=== PATIENT | male | born 1980 | race Caucasian/White ===

== ENCOUNTER 2018-11-02 23:55 | Emergency (ER) | payer MEDICAID ==
[~2018-11-02] VITALS: Ht 180.3 cm; Wt 7.3 kg
[~2018-11-02 23:55] MED LIST: DOXY-8 PO; NO HOME MEDS; POTA20TA19 PO
[2018-11-03 00:02] VITALS: BP 110/66
[2018-11-03] MEDS ORDERED: LIDOcaine 1% 30ml preserv. free vial IJ ONE (00:15)
[2018-11-03] MEDS ORDERED: CEPH500C5 PO (00:33)
[2018-11-03] MEDS ORDERED: HYDR-3965 PO (00:33)
[2018-11-03] MEDS ORDERED: cephalexin 250mg capsule PO ONE (00:35)
== END 2018-11-03 02:44 | disposition home or self-care (01) ==
LOC: ER 23:56
DX: S62.353A Nondisplaced fracture of shaft of third metacarpal bone, left hand, initial encounter for closed fracture (principal); S62.355A Nondisplaced fracture of shaft of fourth metacarpal bone, left hand, initial encounter for closed fracture; L02.413 Cutaneous abscess of right upper limb; F12.90 Cannabis use, unspecified, uncomplicated; F15.90 Other stimulant use, unspecified, uncomplicated; F17.210 Nicotine dependence, cigarettes, uncomplicated; Z88.2 Allergy status to sulfonamides; W50.0XXA Accidental hit or strike by another person, initial encounter; Y93.89 Activity, other specified; Y92.89 Other specified places as the place of occurrence of the external cause; Y99.9 Unspecified external cause status
CPT/HCPCS: 10061; 29125; 73130; 99284; J3490; 10060; 99283

== ENCOUNTER 2018-11-23 09:24 | Emergency (ER) | payer MEDICAID, OTHER ==
[~2018-11-23] VITALS: Ht 180.3 cm; Wt 71.7 kg
[~2018-11-23 09:24] MED LIST changes: +CEPH500C5 PO; +HYDR-3965 PO
--- NOTE | 2018-11-23 10:19 | NUR ---
Assumed care of pt. electrical electronics technician at bedside for splinting as ordered. Addendum: 11/23/18 at 1019 by ANN [employer] at bedside; pt cuffed.
[2018-11-23 10:50] VITALS: BP 114/62
== END 2018-11-23 10:53 ==
LOC: ER 09:25
DX: S92.352A Displaced fracture of fifth metatarsal bone, left foot, initial encounter for closed fracture (principal); S92.512A Displaced fracture of proximal phalanx of left lesser toe(s), initial encounter for closed fracture; S62.102A Fracture of unspecified carpal bone, left wrist, initial encounter for closed fracture; F12.90 Cannabis use, unspecified, uncomplicated; F15.90 Other stimulant use, unspecified, uncomplicated; F17.210 Nicotine dependence, cigarettes, uncomplicated; Z88.2 Allergy status to sulfonamides; Z79.2 Long term (current) use of antibiotics; Z79.899 Other long term (current) drug therapy; X58.XXXA Exposure to other specified factors, initial encounter; Y93.89 Activity, other specified; Y92.89 Other specified places as the place of occurrence of the external cause; Y99.8 Other external cause status
CPT/HCPCS: 29125; 73630; 99283

== ENCOUNTER 2018-12-09 08:43 | Outpatient (CLI) | payer OTHER ==
[2018-12-09 08:31] VITALS: BP 105/66
[~2018-12-09 08:43] MED LIST changes: -HYDR-3965 PO
== END 2018-12-09 09:12 ==
LOC: ORTHO 08:43
PROVIDERS: ATTEND Nurse Practitioner Family
DX: S92.352A Displaced fracture of fifth metatarsal bone, left foot, initial encounter for closed fracture (principal); S92.512A Displaced fracture of proximal phalanx of left lesser toe(s), initial encounter for closed fracture; S62.395A Other fracture of fourth metacarpal bone, left hand, initial encounter for closed fracture; S62.355A Nondisplaced fracture of shaft of fourth metacarpal bone, left hand, initial encounter for closed fracture; S92.355A Nondisplaced fracture of fifth metatarsal bone, left foot, initial encounter for closed fracture; S92.515A Nondisplaced fracture of proximal phalanx of left lesser toe(s), initial encounter for closed fracture
CPT/HCPCS: 73130; 73630; 99213

== ENCOUNTER 2019-01-13 09:08 | Outpatient (CLI) | payer OTHER ==
[2019-01-13 09:05] VITALS: BP 120/76
== END 2019-01-13 09:46 ==
LOC: ORTHO 09:08
PROVIDERS: ATTEND Nurse Practitioner Family
DX: S92.512D Displaced fracture of proximal phalanx of left lesser toe(s), subsequent encounter for fracture with routine healing (principal); S62.395D Other fracture of fourth metacarpal bone, left hand, subsequent encounter for fracture with routine healing; S62.393D Other fracture of third metacarpal bone, left hand, subsequent encounter for fracture with routine healing; F12.90 Cannabis use, unspecified, uncomplicated; F15.90 Other stimulant use, unspecified, uncomplicated; F14.90 Cocaine use, unspecified, uncomplicated; F11.90 Opioid use, unspecified, uncomplicated; F17.210 Nicotine dependence, cigarettes, uncomplicated; Z56.0 Unemployment, unspecified; Z72.89 Other problems related to lifestyle; Z88.2 Allergy status to sulfonamides; X58.XXXD Exposure to other specified factors, subsequent encounter
CPT/HCPCS: 73130; 73630; 99213

== ENCOUNTER 2019-02-03 09:22 | Outpatient (CLI) | payer OTHER ==
[2019-02-03 09:18] VITALS: BP 130/74
== END 2019-02-03 10:07 | disposition home or self-care (01) ==
LOC: ORTHO 09:22
PROVIDERS: ATTEND Nurse Practitioner Family
DX: S62.355D Nondisplaced fracture of shaft of fourth metacarpal bone, left hand, subsequent encounter for fracture with routine healing (principal); S92.355D Nondisplaced fracture of fifth metatarsal bone, left foot, subsequent encounter for fracture with routine healing; S92.515D Nondisplaced fracture of proximal phalanx of left lesser toe(s), subsequent encounter for fracture with routine healing; F12.90 Cannabis use, unspecified, uncomplicated; F15.90 Other stimulant use, unspecified, uncomplicated; F14.90 Cocaine use, unspecified, uncomplicated; F11.90 Opioid use, unspecified, uncomplicated; F17.210 Nicotine dependence, cigarettes, uncomplicated; Z56.0 Unemployment, unspecified; Z72.89 Other problems related to lifestyle; Z88.2 Allergy status to sulfonamides; X58.XXXD Exposure to other specified factors, subsequent encounter
CPT/HCPCS: 73130; 73630; 99213

== ENCOUNTER 2019-03-05 08:42 | Outpatient (CLI) | payer OTHER ==
[2019-03-05 08:45] VITALS: BP 135/73
== END 2019-03-05 09:15 | disposition home or self-care (01) ==
LOC: ORTHO 08:42
PROVIDERS: ATTEND Orthopaedic Surgery
DX: S62.393D Other fracture of third metacarpal bone, left hand, subsequent encounter for fracture with routine healing (principal); S62.395D Other fracture of fourth metacarpal bone, left hand, subsequent encounter for fracture with routine healing; S92.352D Displaced fracture of fifth metatarsal bone, left foot, subsequent encounter for fracture with routine healing; M21.6X2 Other acquired deformities of left foot; Z88.2 Allergy status to sulfonamides; X58.XXXD Exposure to other specified factors, subsequent encounter
CPT/HCPCS: 73130; 73630; 99213

== ENCOUNTER 2019-07-04 10:59 | Emergency (ER) | payer MEDICAID, OTHER ==
[~2019-07-04] VITALS: Ht 180.3 cm; Wt 79.5 kg
[2019-07-04 11:02] VITALS: BP 113/76
[2019-07-04] MEDS ORDERED: DOXY100C43 PO (11:22)
[2019-07-04] MEDS ORDERED: CEPH250T PO (11:22)
[2019-07-04] MEDS ORDERED: TRAM50TA2 PO (14:55)
== END 2019-07-04 11:43 | disposition home or self-care (01) ==
LOC: ER 10:59
DX: L02.214 Cutaneous abscess of groin (principal); Z88.2 Allergy status to sulfonamides; Z79.2 Long term (current) use of antibiotics
CPT/HCPCS: 10060; 99283

== ENCOUNTER 2019-07-04 12:47 | Emergency (ER) | payer MEDICAID, OTHER ==
[~2019-07-04] VITALS: Ht 180.3 cm; Wt 79.5 kg
[~2019-07-04 12:47] MED LIST changes: +CEPH250T PO; +DOXY100C43 PO
[2019-07-04 13:17] VITALS: BP 109/68
[2019-07-04] MEDS ORDERED: LIDOcaine 1% w/EPI 1:100,000 30ml vial (MDV) ONE (14:00)
[2019-07-04] MEDS ORDERED: traMADol 50MG tablet PO ONE ×2 (14:45→15:20)
[2019-07-04] MEDS ORDERED: TRAM50TA2 PO (14:55)
== END 2019-07-04 15:30 | disposition home or self-care (01) ==
LOC: ER 12:47
DX: L02.214 Cutaneous abscess of groin (principal); Z88.2 Allergy status to sulfonamides; Z79.2 Long term (current) use of antibiotics; Z79.899 Other long term (current) drug therapy
CPT/HCPCS: 10060; 99284